=== PATIENT | male | born 1960 | race Caucasian/White ===

== ENCOUNTER 2017-10-08 16:53 | Emergency (ER) | payer OTHER ==
[~2017-10-08] VITALS: Ht 188 cm; Wt 127.0 kg
[2017-10-08 16:56] VITALS: BP 151/101
[2017-10-08] MEDS ORDERED: NAPROSYN500 MG PO (16:59)
[2017-10-08] MEDS ORDERED: NORCO 5-325 TA1 EACH PO (17:10)
[2017-10-08] MEDS ORDERED: CLEOCIN HCL150 MG PO (17:10)
== END 2017-10-08 17:19 | disposition home or self-care (01) ==
LOC: M.ERS 16:53
DX: K04.7 Periapical abscess without sinus (principal); G89.29 Other chronic pain; M54.9 Dorsalgia, unspecified; F17.210 Nicotine dependence, cigarettes, uncomplicated